=== PATIENT | female | born 1995 | race Two or more races ===

== ENCOUNTER 2022-10-26 13:29 | Emergency (ER) | payer OTHER ==
[2022-10-26] MEDS ORDERED: methylPREDNISolone NA SUCC 125 MG/2 ML VIAL IVPB ONE (13:32)
[2022-10-26] MEDS ORDERED: FAMOTIDINE 20 MG/50 ML IVPB 20 MG/50 ML MG IVPB ONE ×2 (13:32→13:35)
[2022-10-26] MEDS ORDERED: methylPREDNISolone NA SUCC 125 MG/2 ML VIAL ONE (13:35)
[2022-10-26 13:38] VITALS: RESP 20; TEMP 98.2; BMI 29.0
[2022-10-26 14:20] VITALS: BP 136/76
[2022-10-26 14:30] VITALS: PULSE 99
== END 2022-10-26 14:30 | disposition home or self-care (01) ==
LOC: FER 13:29
PROC: 3E033GC Introduction of Other Therapeutic Substance into Peripheral Vein, Percutaneous Approach (ICD-10-PCS; principal; 2022-10-26)
DX: T78.40XA Allergy, unspecified, initial encounter (principal)
CPT/HCPCS: 81025; 99284-25

== ENCOUNTER 2024-03-24 22:41 | Emergency (ER) | payer OTHER ==
[2024-03-24 22:51] VITALS: BP 148/88; RESP 20; TEMP 98.6; BMI 27.9
[2024-03-24] MEDS ORDERED: ACETAMINOPHEN INJECTION 100 ML IVPB ONE (23:10)
[2024-03-24 23:14] LABS: HEMOGLOBIN 14.3 G/dL (10.7-15.3); MCH 29.8 pg (25.7-33.7); MCHC 33.3 g/dl (32.0-36.0); MEAN CELL VOLUME 89.4 fl (80-96); MEAN PLT VOLUME 7.6 fl (7.5-11.1); RBC 4.81 10^6/uL (3.60-5.2); RDW 13.9 % (11.6-15.6); WHITE BLOOD COUNT 7.5 10^3/uL (4.0-10.8)
[2024-03-24] MEDS: SODIUM CHLORIDE 1,000 ML IV ONE (23:14)
[2024-03-24] MEDS: ACETAMINOPHEN 1000 MG/100 ML BAG IVPB ONE (23:15)
[2024-03-24 23:19] LABS: HCG,QUALITATIVE URINE Negative
[2024-03-24 23:30] LABS: ALBUMIN 4.7 g/dl (3.4-5.0); BILIRUBIN,TOTAL 0.4 mg/dl (0.2-1); CALCIUM 9.6 mg/dl (8.5-10.1); CREATININE 0.8 mg/dl (0.6-1.3); MAGNESIUM 1.9 mg/dL (1.8-2.4); PHOSPHOROUS 3.1 (2.5-4.9); POTASSIUM 3.6 mmol/L (3.5-5.1); TOT PROT 7.8 g/dl (6.4-8.2)
[2024-03-24 23:50] VITALS: PULSE 100
== END 2024-03-25 00:10 | disposition home or self-care (01) ==
LOC: FER 22:41
PROC: 3E033NZ Introduction of Analgesics, Hypnotics, Sedatives into Peripheral Vein, Percutaneous Approach (ICD-10-PCS; principal; 2024-03-24)
PROC: 3E0337Z Introduction of Electrolytic and Water Balance Substance into Peripheral Vein, Percutaneous Approach (ICD-10-PCS; 2024-03-24)
DX: R05.9 Cough, unspecified (principal); R51.9 Headache, unspecified; M79.10 Myalgia, unspecified site; R00.2 Palpitations; J39.8 Other specified diseases of upper respiratory tract; B97.89 Other viral agents as the cause of diseases classified elsewhere; U07.1 COVID-19
CPT/HCPCS: 0241U-QW; 36415; 80053; 81003; 83735; 84100; 84703; 85027; 85379; 99284-25; J0131